=== PATIENT | male | born 1960 | race Caucasian/White ===

== ENCOUNTER 2018-01-06 00:33 | Emergency (ER) | payer OTHER ==
[2018-01-06 00:50] VITALS: BP 132/83; PULSE 116; O2SAT 98
--- NOTE | 2018-01-06 01:05 | ERPHSYRPT ---
- History of Present Illness Time Seen by Provider: 01/06/18 00:51 Source: patient Exam Limitations: no limitations Patient Subjective Stated Complaint: legs swollen Triage Nursing Assessment: Pt c/o of bilateral swelling of his legs, has had to keep them wrapped for the past year to keep from splitting open and weeping, states that legs are more swollen now and has been for the past 4 days but has not contacted his PCP, hx of diabetes and has had 7 toes amputated, pulses normal, doesn't appear to be in any distress Physician History: This is a 57-year-old morbidly obese white male with history of peripheral neuropathy diabetes as well high blood pressure He arrives with complaint that he has chronic leg swelling for over a year. He states that he has been increased over the past 3-4 days. He has no shortness of breath no nausea no chest pain. He feels like his lower legs appear to be more red than usual. He states that he usually sees a physician down in [facility] and that he usually goes to [facility] for treatment of his legs. His states that the patient appears to have dry her plantar surfaces of his feet than usual he has no nausea no vomiting. He has no fevers. Past medical history includes peripheral neuropathy, diabetes type 2, asthma, high blood pressure, patient has had 4 toes amputated in the past. Social history is positive for chewing tobacco. . Timing/Duration: other (bilateral leg swelling for 1 year, worse for the past 4 day) Severity: moderate Modifying Factors: Improves With: nothing Associated Symptoms: other (bilateral leg swelling, bilateral legs erythematos for 4 days), No nausea, No vomiting, No abdominal pain, No shortness of breath, No heartburn, No diaphoresis, No cough, No chills, No chest pain, No fever, No headaches, No loss of appetite, No malaise, No syncope, No seizure, No weakness Allergies/Adverse Reactions: amoxicillin Allergy (Verified 01/06/18 00:52) ceftriaxone [From Rocephin] Allergy (Verified 01/06/18 00:52) Penicillins Allergy (Verified 01/06/18 00:52) sulfamethoxazole [From Bactrim] Allergy (Verified 01/06/18 00:52) trimethoprim [From Bactrim] Allergy (Verified 01/06/18 00:52) Home Medications: Glipizide 5 mg [Glucotrol 5 MG] 10 mg PO BID 01/06/18 [History] Lisinopril 10 mg [Zestril 10 MG] 10 mg PO DAILY 01/06/18 [History] Metformin HCl 850 mg [Glucophage 850 MG] 850 mg PO BID 01/06/18 [History] - Review of Systems Constitutional: No Fever, No Chills Eyes: No Symptoms Ears, Nose, & Throat: No Symptoms Respiratory: No Cough, No Dyspnea Cardiac: Edema, No Chest Pain, No Syncope Abdominal/Gastrointestinal: No Abdominal Pain, No Nausea, No Vomiting, No Diarrhea Genitourinary Symptoms: No Dysuria Musculoskeletal: Other (bilateral leg swelling), No Back Pain, No Neck Pain Skin: Other (bilateral legs dry skin especially feet, legs erythematous) Neurological: No Dizziness, No Focal Weakness, No Sensory Changes Psychological: No Symptoms Endocrine: No Symptoms All Other Systems: Reviewed and Negative - Past Medical History Pertinent Past Medical History: Yes Neurological History: Peripheral Neuropathy Cardiac History: Hypertension Respiratory History: Asthma Endocrine Medical History: Diabetes Type II Other Medical History: 7 toes amputated - Past Surgical History Past Surgical History: Yes Musculoskeletal: Amputation Other Surgical History: 7 toes amputated - Social History Smoking Status: Former smoker Exposure to second hand smoke: Yes Drug Use: none Patient Lives Alone: No - Nursing Vital Signs Nursing Vital Signs: Initial Vital Signs Temperature 97.7 F 01/06/18 00:36 Pulse Rate 116 H 01/06/18 00:36 Blood Pressure 132/83 01/06/18 00:36 O2 Sat by Pulse Oximetry 98 01/06/18 00:36 Pain Scale Pain Intensity 0 - Physical Exam General Appearance: other (morbidly obese white male in no apparent distress alert, oriented 3) Eye Exam: PERRL/EOMI, eyes nml inspection Ears, Nose, Throat Exam: normal ENT inspection, TMs normal, pharynx normal, moist mucous membranes Neck Exam: normal inspection, non-tender, supple, full range of motion Respiratory Exam: normal breath sounds, lungs clear, No respiratory distress Cardiovascular Exam: regular rate/rhythm, normal heart sounds, normal peripheral pulses Gastrointestinal/Abdomen Exam: soft, normal bowel sounds, No tenderness, No mass Back Exam: normal inspection, normal range of motion, No CVA tenderness, No vertebral tenderness Extremity Exam: other (bilateral legs edematous with dry skinmild erythema bilateral mid shins no drainage) Neurologic Exam: alert, oriented x 3, cooperative, atv mechanic II-XII nml as tested, normal mood/affect, nml cerebellar function, nml station & gait, sensation nml, No motor deficits Skin Exam: other (Bilateral legs and feet with dry skin, no drainage, mild erythema mid musa, bilaterally) Lymphatic Exam: No adenopathy SpO2 Interpretation: normal (98%) SpO2: 98 Oxygen Delivery: Room Air - Course Nursing assessment & vital signs reviewed: Yes EKG Interpreted by Me: RATE (88 bpm), Sinus Rhythm, Left [place] Deviation, Other ( EKG: Sinus rhythm, 88 bpm, left axis deviation, no acute ST or T wave changes noted) Ordered Tests: Active Orders 24 hr Category Date Time Status Accucheck STAT Care 01/06/18 00:56 Active EKG-ER Only STAT Care 01/06/18 00:57 Active IV Insertion STAT Care 01/06/18 00:56 Active Wound Care STAT Care 01/06/18 00:56 Active BLOOD CULTURE Stat Lab 01/06/18 02:00 Received CBC W DIFF Stat Lab 01/06/18 01:10 Completed CMP Stat Lab 01/06/18 01:10 Completed D-DIMER QUANTITATION Stat Lab 01/06/18 01:10 Completed Lactic Acid Stat Lab 01/06/18 02:00 Results NT PRO BNP Stat Lab 01/06/18 01:10 Completed Medication Summary Discontinued Medications Generic Name Dose Route Start Last Admin Trade Name Freq PRN Reason Stop Dose Admin Clindamycin HCl 300 mg 01/06/18 02:53 01/06/18 02:56 Cleocin 150 Mg Capsule PO 01/06/18 02:54 300 mg STAT ONE Administration Clindamycin HCl Confirm 01/06/18 02:56 Cleocin 150 Mg Capsule Administered 01/06/18 02:57 Dose 300 mg .ROUTE .STK-MED ONE Lab/Rad Data: Laboratory Result Diagrams 01/06/18 01:10 01/06/18 01:10 Laboratory Results 01/06/18 01/06/18 01/06/18 Range/Units 02:00 01:10 01:10 WBC (4.0-10.5) K/mm3 RBC (4.1-5.6) M/mm3 Hgb (12.5-18.0) gm/dl Hct (42-50) % MCV (78-100) fl MCH (26-32) pg MCHC (32-36) g/dl RDW (11.5-14.0) % Plt Count (150-450) K/mm3 MPV (6-9.5) fl Gran % (36.0-66.0) % Eos # (Auto) (0-0.5) Absolute Lymphs (auto) (1.0-4.6) Absolute Monos (auto) (0.0-1.3) Lymphocytes % (24.0-44.0) % Monocytes % (0.0-12.0) % Eosinophils % (0.00-5.0) % Basophils % (0.0-0.4) % Absolute Granulocytes (1.4-6.9) Basophils # (0-0.4) D-Dimer 13634 H* (215-500) ng/mL Sodium (137-145) mmol/L Potassium (3.5-5.1) mmol/L Chloride (98-107) mmol/L Carbon Dioxide (22-30) mmol/L Anion Gap (5-15) MEQ/L BUN (9-20) mg/dL Creatinine (0.66-1.25) mg/dL Estimated GFR ML/MIN Glucose (74-106) mg/dL Lactic Acid 2.3 H (0.4-2.0) Calcium (8.4-10.2) mg/dL Total Bilirubin (0.2-1.3) mg/dL AST (17-59) U/L ALT (0-50) U/L Alkaline Phosphatase (38-126) U/L NT-Pro-B Natriuret Pep 56.6 (0-900) pg/mL Serum Total Protein (6.3-8.2) g/dL Albumin (3.5-5.0) g/dL 01/06/18 01/06/18 Range/Units 01:10 01:10 WBC 9.5 (4.0-10.5) K/mm3 RBC 4.87 (4.1-5.6) M/mm3 Hgb 15.5 (12.5-18.0) gm/dl Hct 46.1 (42-50) % MCV 94.7 (78-100) fl MCH 31.8 (26-32) pg MCHC 33.6 (32-36) g/dl RDW 13.0 (11.5-14.0) % Plt Count 237 (150-450) K/mm3 MPV 10.4 H (6-9.5) fl Gran % 60.4 (36.0-66.0) % Eos # (Auto) 0.31 (0-0.5) Absolute Lymphs (auto) 2.56 (1.0-4.6) Absolute Monos (auto) 0.81 (0.0-1.3) Lymphocytes % 27.1 (24.0-44.0) % Monocytes % 8.6 (0.0-12.0) % Eosinophils % 3.3 (0.00-5.0) % Basophils % 0.6 (0.0-0.4) % Absolute Granulocytes 5.72 (1.4-6.9) Basophils # 0.06 (0-0.4) D-Dimer (215-500) ng/mL Sodium 141 (137-145) mmol/L Potassium 4.0 (3.5-5.1) mmol/L Chloride 105 (98-107) mmol/L Carbon Dioxide 22 (22-30) mmol/L Anion Gap 18.9 H (5-15) MEQ/L BUN 23 H (9-20) mg/dL Creatinine 1.53 H (0.66-1.25) mg/dL Estimated GFR 49.9 ML/MIN Glucose 102 (74-106) mg/dL Lactic Acid (0.4-2.0) Calcium 9.9 (8.4-10.2) mg/dL Total Bilirubin 0.50 (0.2-1.3) mg/dL AST 19 (17-59) U/L ALT 20 (0-50) U/L Alkaline Phosphatase 80 (38-126) U/L NT-Pro-B Natriuret Pep (0-900) pg/mL Serum Total Protein 8.4 H (6.3-8.2) g/dL Albumin 4.7 (3.5-5.0) g/dL - Progress Progress: improved Progress Note: 01/06/18 01:03 This is a morbidly obese white male with history of diabetes, peripheral neuropathy, asthma, high blood pressure, who has had a history of stasis dermatitis in the past he also has been seeing [facility]. He has a family physician in [facility] he states he moved here. He states he has been having leg swelling for a year he states it is worse over the past 4 days. He states that he has erythema to bilateral lower legs for the past 4 days. He has not had any fevers no nausea no vomiting. On examination patient appears to have chronic bilateral lower extremity edema with dry skin on both plantar surface of his feet as well as his lower legs. He has mild erythema to the anterior bilateral midshin area is not hot. Will go ahead and obtain appropriate labs. 01/06/18 03:02 57-year-old white male with history of peripheral neuropathy, diabetes type 2, asthma, high blood pressure, Who has chronic lower extremity edema complains of leg swelling for over a year. He states that for the past 4 days he feels like his legs are increasingly swollen. He is not complaining of any shortness of breath chest pain abdominal pain nausea vomiting. He has been afebrile. On physical examination patient with bilateral edema of the lower legs this appears to be chronic. He has mild erythema mid musa anteriorly bilaterally. He has dry skin on both lower extremities. Patient had a markedly elevated d-dimer I did try to go ahead and order a venous Doppler bilateral extremities however when the tech showed up the patient refused venous Doppler. I had told the patient I cannot rule out DVT without these he states he does not want this test done. Patient does have some very mild erythema of his bilateral anterior legs. He is afebrile the area is not hot. Will go ahead and give patient clindamycin to cover. Patient is noted to have a lactate which is increased increased at 2.3. Patient does not appear to be septic blood pressure is stable oxygen saturation is 98% respirations are clear patient has good perfusion to his extremities. Will go ahead and place patient on clindamycin 600 mg IV followed by 300 mg orally 3 times a day. Will arrange for a referral to the wound care clinic. . - Departure Time of Disposition: 02:58 Departure Disposition: Home Clinical Impression: Leg swelling, early cellulitis bilateral legs Condition: Fair Critical Care Time: No Referrals: Provider,Unknown [Primary Care Provider] - Instructions: Dependent Edema (DC) Additional Instructions: Return home. Plenty of fluids. Clindamycin as prescribed. Follow-up with your family doctor. Return for acute distress or for severe symptoms. You were noted to have a markedly elevated d-dimer this can be indicative of blood clots.(dvt) You have refused bilateral lower extremity Dopplers. We cannot rule out blood clots in your legs without these. DVTs can be fatal if they moved to the lung . Follow-up with your family doctor. Follow-up with the wound care clinic. You may return at any time. Return for acute distress or for severe symptoms. Prescriptions: Clindamycin HCl 300 mg PO TID #30 capsule
[2018-01-06 01:32] LABS: BASOPHIL % 0.6 % (0.0-0.4); Basophil (Absolute #) 0.06 (0-0.4); Eosinophil % 3.3 % (0.00-5.0); Eosinophil (Absolute #) 0.31 (0-0.5); Granulocyte Absolute (ANC) 5.72 (1.4-6.9); Granulocytes % 60.4 % (36.0-66.0); Hematocrit 46.1 % (42-50); Hemoglobin 15.5 gm/dl (12.5-18.0); Lymphocyte (Absolute #) 2.56 (1.0-4.6); Lymphocytes % 27.1 % (24.0-44.0); Mean Cell Volume 94.7 fl (78-100); Mean Corpuscular Hemoglobin 31.8 pg (26-32); Mean Corpuscular Hgb Concent. 33.6 g/dl (32-36); Mean Platelet Volume 10.4 fl (6-9.5); Monocyte (Absolute #) 0.81 (0.0-1.3); Monocytes % 8.6 % (0.0-12.0); Platelet Count 237 K/mm3 (150-450); Red Blood Count 4.87 M/mm3 (4.1-5.6); White Blood Count 9.5 K/mm3 (4.0-10.5)
[2018-01-06 01:51] LABS: ALBUMIN 4.7 g/dL (3.5-5.0); ANION GAP 18.9 MEQ/L (5-15); BILIRUBIN,TOTAL 0.5 mg/dL (0.2-1.3); Calcium 9.9 mg/dL (8.4-10.2); Creatinine 1 1.53 mg/dL (0.66-1.25); Total Protein 8.4 g/dL (6.3-8.2)
[2018-01-06 02:07] LABS: Lactic Acid 2.3 (0.4-2.0)
[2018-01-06] MEDS ORDERED: CLEOCIN 150 MG CAPSULE PO ONE (02:53)
[2018-01-06] MEDS ORDERED: CLEOCIN 150 MG CAPSULE ONE (02:56)
== END 2018-01-06 03:25 | disposition home or self-care (01) ==
LOC: ED 00:33
DX: L03.116 Cellulitis of left lower limb (principal); L03.115 Cellulitis of right lower limb; R79.1 Abnormal coagulation profile; Z79.899 Other long term (current) drug therapy; E11.9 Type 2 diabetes mellitus without complications; Z79.84 Long term (current) use of oral hypoglycemic drugs; I10 Essential (primary) hypertension
CPT/HCPCS: 36000; 36415; 80053; 82962; 83605; 83880; 85025; 85379; 87040; 93005; 99284; A9270-GY

== ENCOUNTER 2018-01-16 00:10 | Emergency (ER) | payer OTHER ==
[2018-01-16 01:07] VITALS: BP 105/63; PULSE 76; O2SAT 98
--- NOTE | 2018-01-16 01:13 | ERPHSYRPT ---
- History of Present Illness Time Seen by Provider: 01/16/18 00:30 Source: patient Exam Limitations: clinical condition Patient Subjective Stated Complaint: pt states he thinks he has an ingrown nail to his lt thumb. states it started approx 4 days ago and today he has green drainage from it. Triage Nursing Assessment: pt alert and oriented. answers questions approp. pt ambulatory with steady gait noted. respirations nonlbored. open area to lt thumb. no drainage noted at this time. Physician History: PATIENT WITH A HISTORY OF HYPERTENSION, TYPE 2 DIABETES PLACED ON ANTIBIOTIC CLINDAMYCIN 300MG TID SINCE 01/06/2018 FOR A LEG INFECTION BUT HAS BEEN TAKING MEDICATION ONLY DAILY. HE NOW COMPLAINS OF DRAINAGE OVER THUMB NAIL AFTER PULLING HANGNAIL. DENIES REDNESS OVER THUMB. DENIES FEVER. Occurred: just prior to arrival Method of Injury: other (PULLED HANG NAIL) Quality: throbbing Severity of Pain-Max: mild Severity of Pain-Current: mild Extremities Pain Location: thumb: right Modifying Factors: Improves With: nothing Allergies/Adverse Reactions: amoxicillin Allergy (Verified 01/16/18 00:28) ceftriaxone [From Rocephin] Allergy (Verified 01/16/18 00:28) Penicillins Allergy (Verified 01/16/18 00:28) sulfamethoxazole [From Bactrim] Allergy (Verified 01/16/18 00:28) trimethoprim [From Bactrim] Allergy (Verified 01/16/18 00:28) Home Medications: Glipizide 5 mg [Glucotrol 5 MG] 10 mg PO BID 01/06/18 [History] Lisinopril 10 mg [Zestril 10 MG] 10 mg PO DAILY 01/06/18 [History] Metformin HCl 850 mg [Glucophage 850 MG] 850 mg PO BID 01/06/18 [History] Hx Tetanus, Diphtheria Vaccination/Date Given: No (unknown) Hx Influenza Vaccination/Date Given: No Hx Pneumococcal Vaccination/Date Given: No Immunizations Up to Date: No - Review of Systems Musculoskeletal: Joint Swelling - Past Medical History Pertinent Past Medical History: Yes Neurological History: Peripheral Neuropathy Cardiac History: Hypertension Respiratory History: Asthma Endocrine Medical History: Diabetes Type II Other Medical History: 7 toes amputated - Past Surgical History Past Surgical History: Yes Musculoskeletal: Amputation Other Surgical History: 7 toes amputated - Social History Smoking Status: Former smoker Exposure to second hand smoke: Yes Drug Use: none Patient Lives Alone: No - Nursing Vital Signs Nursing Vital Signs: Initial Vital Signs Temperature 97.4 F 01/16/18 00:17 Pulse Rate 79 01/16/18 00:17 Respiratory Rate 18 01/16/18 00:17 Blood Pressure 147/88 01/16/18 00:17 O2 Sat by Pulse Oximetry 99 01/16/18 00:17 Pain Scale Pain Intensity 0 - Physical Exam General Appearance: no apparent distress Hand Exam: nail injury (SWELLING WITH SEROSANGUINOUS DRAINAGE FOR NAIL FOLD RADIAL ASPECT DISTAL PHALANGX RIGHT THUMB), soft tissue tenderness SpO2: 98 Oxygen Delivery: Room Air - Progress Counseled pt/family regarding: diagnosis, need for follow-up - Departure Time of Disposition: :20 Departure Disposition: Home Clinical Impression: RIGHT THUMB EARLY CELLULITIS Condition: Stable Critical Care Time: No Referrals: DOCTOR,NO FAMILY [Primary Care Provider] - Additional Instructions: BEGIN TAKING ANTIBIOTIC CLEOCIN 300MG EVERY 8 HOURS FOR 10 DAYS. CHANGE BANDAID EVERY 6 HOURS OVER THUMB NEEDED. FOLLOWUP WITH YOUR PRIMARY CARE PROVIDER FOR FOLLOWUP IN 5-7 DAYS, Prescriptions: Clindamycin HCl [Cleocin HCl] 300 mg PO TID #21 capsule
== END 2018-01-16 01:24 | disposition home or self-care (01) ==
LOC: ED 00:10
DX: L03.011 Cellulitis of right finger (principal); Z79.899 Other long term (current) drug therapy
CPT/HCPCS: 99283

== ENCOUNTER 2018-03-14 19:15 | Emergency (ER) | payer OTHER ==
--- NOTE | 2018-03-14 19:51 | ERPHSYRPT ---
- History of Present Illness Time Seen by Provider: 03/14/18 19:50 Allergies/Adverse Reactions: ceftriaxone [From Rocephin] Allergy (Mild, Verified 03/14/18 19:57) Rash clindamycin [From Cleocin] Allergy (Mild, Verified 03/14/18 19:57) Rash Penicillins Allergy (Mild, Verified 03/14/18 19:57) Rash sulfamethoxazole [From Bactrim] Allergy (Mild, Verified 03/14/18 19:57) Rash trimethoprim [From Bactrim] Allergy (Mild, Verified 03/14/18 19:57) Rash amoxicillin Allergy (Verified 01/16/18 00:28) Home Medications: Glipizide 5 mg [Glucotrol 5 MG] 10 mg PO BID 01/06/18 [History] Lisinopril 10 mg [Zestril 10 MG] 10 mg PO DAILY 01/06/18 [History] Metformin HCl 850 mg [Glucophage 850 MG] 850 mg PO BID 01/06/18 [History] Hx Tetanus, Diphtheria Vaccination/Date Given: No (unknown) Hx Influenza Vaccination/Date Given: No Hx Pneumococcal Vaccination/Date Given: No - Past Medical History Pertinent Past Medical History: Yes Neurological History: Peripheral Neuropathy Cardiac History: Hypertension Respiratory History: Asthma Endocrine Medical History: Diabetes Type II Other Medical History: 7 toes amputated - Past Surgical History Past Surgical History: Yes Musculoskeletal: Amputation Other Surgical History: 7 toes amputated - Social History Smoking Status: Former smoker Exposure to second hand smoke: Yes Drug Use: none Patient Lives Alone: No - Nursing Vital Signs Nursing Vital Signs: Initial Vital Signs Temperature 97.5 F 03/14/18 19:32 Pulse Rate 76 03/14/18 19:32 Respiratory Rate 16 03/14/18 19:32 Blood Pressure 141/89 03/14/18 19:32 O2 Sat by Pulse Oximetry 99 03/14/18 19:32 Pain Scale Pain Intensity 0 - Course Nursing assessment & vital signs reviewed: Yes EKG Interpreted by Me: RATE (66), NORMAL AXIS, Other (escape rhythm; no acute ischemia and no change from ekg 01/06/18 ) Ordered Tests: Active Orders 24 hr Category Date Time Status Clean Catch Urine Specimen STAT Care 03/14/18 20:10 Active EKG-ER Only STAT Care 03/14/18 20:10 Active IV Insertion STAT Care 03/14/18 20:10 Active Pulse Oximetry (ED) STAT Care 03/14/18 20:10 Active HEAD WITHOUT CONTRAST [CT] Stat Exams 03/14/18 20:11 Taken CBC W DIFF Stat Lab 03/14/18 20:35 Completed CMP Stat Lab 03/14/18 20:35 Completed CULTURE,URINE Stat Lab 03/14/18 22:29 Received TROPONIN Stat Lab 03/14/18 20:30 Received UA W/RFX UR CULTURE Stat Lab 03/14/18 22:29 Completed Medication Summary Generic Name Dose Route Start Last Admin Trade Name Freq PRN Reason Stop Dose Admin Ciprofloxacin 500 mg 03/15/18 23:40 Cipro 500 Mg PO 03/15/18 23:41 ONCE ONE Discontinued Medications Generic Name Dose Route Start Last Admin Trade Name Freq PRN Reason Stop Dose Admin Sodium Chloride 1,000 mls @ 999 mls/hr 03/14/18 20:10 03/14/18 20:43 Sodium Chloride 0.9% 1000 Ml IV 03/14/18 21:10 999 mls/hr .Q1H1M STA Administration Sodium Chloride Confirm 03/14/18 20:39 Sodium Chloride 0.9% 1000 Ml Administered 03/14/18 20:40 Dose 1,000 mls @ ud .ROUTE .STK-MED ONE Lab/Rad Data: Laboratory Result Diagrams 03/14/18 20:35 03/14/18 20:35 Laboratory Results 03/14/18 03/14/18 03/14/18 Range/Units 22:29 20:35 20:35 WBC 5.8 (4.0-10.5) K/mm3 RBC 4.48 (4.1-5.6) M/mm3 Hgb 14.1 (12.5-18.0) gm/dl Hct 42.2 (42-50) % MCV 94.2 (78-100) fl MCH 31.5 (26-32) pg MCHC 33.4 (32-36) g/dl RDW 13.0 (11.5-14.0) % Plt Count 176 (150-450) K/mm3 MPV 9.3 (6-9.5) fl Gran % 61.9 (36.0-66.0) % Eos # (Auto) 0.18 (0-0.5) Absolute Lymphs (auto) 1.46 (1.0-4.6) Absolute Monos (auto) 0.56 (0.0-1.3) Lymphocytes % 25.1 (24.0-44.0) % Monocytes % 9.6 (0.0-12.0) % Eosinophils % 3.1 (0.00-5.0) % Basophils % 0.3 (0.0-0.4) % Absolute Granulocytes 3.60 (1.4-6.9) Basophils # 0.02 (0-0.4) Sodium 140 (137-145) mmol/L Potassium 4.8 (3.5-5.1) mmol/L Chloride 106 (98-107) mmol/L Carbon Dioxide 23 (22-30) mmol/L Anion Gap 15.6 H (5-15) MEQ/L BUN 18 (9-20) mg/dL Creatinine 0.91 (0.66-1.25) mg/dL Estimated GFR > 60.0 ML/MIN Glucose 108 H (74-106) mg/dL Calcium 9.2 (8.4-10.2) mg/dL Total Bilirubin 0.50 (0.2-1.3) mg/dL AST 17 (17-59) U/L ALT 16 (0-50) U/L Alkaline Phosphatase 66 (38-126) U/L Serum Total Protein 7.0 (6.3-8.2) g/dL Albumin 3.9 (3.5-5.0) g/dL Urine Color YELLOW (YELLOW) Urine Appearance CLEAR (CLEAR) Urine pH 6.0 (5-6) Ur Specific [place] 1.013 (1.005-1.025) Urine Protein 30 (Negative) Urine Ketones TRACE (NEGATIVE) Urine Blood SMALL (0-5) Will/ul Urine Nitrite NEGATIVE (NEGATIVE) Urine Bilirubin NEGATIVE (NEGATIVE) Urine Urobilinogen 2 (0-1) mg/dL Ur Leukocyte Esterase SMALL (NEGATIVE) Urine WBC (Auto) 26-50 (0-5) /HPF Urine RBC (Auto) 3-5 (0-2) /HPF U Epithel Cells (Auto) NONE SEEN (FEW) /HPF Urine Bacteria (Auto) MANY (NEGATIVE) /HPF Urine Mucus (Auto) SLIGHT (NEGATIVE) /HPF Urine Culture Reflexed YES (NO) Urine Glucose NEGATIVE (NEGATIVE) mg/dL - Progress Progress: improved, re-examined Progress Note: 03/14/18 23:47 pt states he is feeling much better after fluids. he does not want to wait for troponin to return. he has to leave to get his daughter to work. i discussed with him the risks of a myocardial infarction and . he understands and still wants to sign out ama. Counseled pt/family regarding: lab results, diagnosis, need for follow-up, rad results - Departure Time of Disposition: 23:52 Departure Disposition: AMA Clinical Impression: Weakness, UTI (urinary tract infection) Condition: Stable Critical Care Time: No Referrals: DOCTOR,NO FAMILY [Primary Care Provider] - Additional Instructions: drink plenty of fluids. follow up with primary doctor for further management. return to ED if symptoms worsen
[2018-03-14 20:38] LABS: BASOPHIL % 0.3 % (0.0-0.4); Basophil (Absolute #) 0.02 (0-0.4); Eosinophil % 3.1 % (0.00-5.0); Eosinophil (Absolute #) 0.18 (0-0.5); Granulocytes % 61.9 % (36.0-66.0); Hematocrit 42.2 % (42-50); Hemoglobin 14.1 gm/dl (12.5-18.0); Lymphocyte (Absolute #) 1.46 (1.0-4.6); Lymphocytes % 25.1 % (24.0-44.0); Mean Cell Volume 94.2 fl (78-100); Mean Corpuscular Hemoglobin 31.5 pg (26-32); Mean Corpuscular Hgb Concent. 33.4 g/dl (32-36); Mean Platelet Volume 9.3 fl (6-9.5); Monocyte (Absolute #) 0.56 (0.0-1.3); Monocytes % 9.6 % (0.0-12.0); Platelet Count 176 K/mm3 (150-450); Red Blood Count 4.48 M/mm3 (4.1-5.6); White Blood Count 5.8 K/mm3 (4.0-10.5)
[2018-03-14] MEDS ORDERED: Sodium Chloride 0.9% 1000 ML 1,000 ML ONE (20:39)
[2018-03-14] MEDS: Sodium Chloride 0.9% 1000 ML 1,000 ML IV STA (20:43)
[2018-03-14 20:59] LABS: ALBUMIN 3.9 g/dL (3.5-5.0); ALKALINE PHOSPHATASE 66 U/L (38-126); ANION GAP 15.6 MEQ/L (5-15); BLOOD UREA NITROGEN 18 mg/dL (9-20); CHLORIDE 106 mmol/L (98-107); Calcium 9.2 mg/dL (8.4-10.2); Carbon Dioxide 23 mmol/L (22-30); Creatinine 1 0.91 mg/dL (0.66-1.25); Glucose 108 mg/dL (74-106); Potassium 4.8 mmol/L (3.5-5.1); SGOT/AST 17 U/L (17-59); SGPT/ALT 16 U/L (0-50); SODIUM 140 mmol/L (137-145)
[2018-03-14 22:41] LABS: Appearance CLEAR (CLEAR); Bilirubin NEGATIVE (NEGATIVE); Blood SMALL Ery/ul (0-5); Glucose NEGATIVE (NEGATIVE); Ketones TRACE (NEGATIVE); Leukocyte Esterase SMALL (NEGATIVE); Nitrite NEGATIVE (NEGATIVE); Protein,Urine Dip 30 (Negative); Specific Gravity 1.013 (1.005-1.025); Urobilinogen 2 mg/dL (0-1)
[2018-03-14 23:47] VITALS: BP 125/80; PULSE 76; O2SAT 99
[2018-03-14] MEDS ORDERED: Cipro 500 MG ONE (23:47)
[2018-03-14] MEDS: Cipro 500 MG PO ONE (23:58)
--- NOTE | 2018-03-15 09:03 | XRAY ---
Indication: Dizziness and loss of balance. No known injury. Multiple contiguous axial images obtained through the head without contrast. Comparison: None Age appropriate global atrophy. Minimal periventricular degenerative micro-ischemia. No acute intracranial hemorrhage, abnormal extra-axial fluid collection, or mass effect. Fourth ventricle is midline. Bony calvarium intact. Visualized paranasal sinuses and mastoid air cells are clear. Impression: 1. Normal aging brain including atrophy and degenerative micro-ischemia. 2. No acute intracranial abnormalities.. Comment: Preliminary interpretation was made by [facility]. No discrepancy. CT DI 94.03
== END 2018-03-15 00:09 | disposition home or self-care (01) ==
LOC: ED 19:15
DX: R53.1 Weakness (principal); R42 Dizziness and giddiness; N39.0 Urinary tract infection, site not specified; E11.9 Type 2 diabetes mellitus without complications; I10 Essential (primary) hypertension; J45.909 Unspecified asthma, uncomplicated; Z89.429 Acquired absence of other toe(s), unspecified side; Z79.4 Long term (current) use of insulin; G62.9 Polyneuropathy, unspecified; E66.01 Morbid (severe) obesity due to excess calories
CPT/HCPCS: 36415; 70450; 80053; 81001; 82962; 84484; 85025; 87077; 87086; 87186; 93005; 96360; 99284; A9270-GY

== ENCOUNTER 2018-10-25 21:52 | Emergency (ER) | payer OTHER ==
--- NOTE | 2018-10-25 22:16 | ERPHSYRPT ---
- History of Present Illness Time Seen by Provider: 10/25/18 22:16 Source: patient Exam Limitations: no limitations Physician History: 57 y/o white male presents with right knee pain after falling down yesterday. Method of Injury: fell Occurred: other (yesterday am) Quality: aching Severity of Pain-Max: mild Severity of Pain-Current: mild Lower Extremities Pain: knee: right Modifying Factors: Improves With: movement Associated Symptoms: other (hurts to bear weight) Allergies/Adverse Reactions: ceftriaxone [From Rocephin] Allergy (Mild, Verified 10/25/18 22:10) Rash clindamycin [From Cleocin] Allergy (Mild, Verified 10/25/18 22:10) Rash Penicillins Allergy (Mild, Verified 10/25/18 22:10) Rash sulfamethoxazole [From Bactrim] Allergy (Mild, Verified 10/25/18 22:10) Rash trimethoprim [From Bactrim] Allergy (Mild, Verified 10/25/18 22:10) Rash amoxicillin Allergy (Verified 10/25/18 22:10) Home Medications: Glipizide 5 mg [Glucotrol 5 MG] 10 mg PO BID 01/06/18 [History] Lisinopril 10 mg [Zestril 10 MG] 10 mg PO DAILY 01/06/18 [History] Metformin HCl 850 mg [Glucophage 850 MG] 850 mg PO BID 01/06/18 [History] Hx Tetanus, Diphtheria Vaccination/Date Given: No (unknown) Hx Influenza Vaccination/Date Given: No Hx Pneumococcal Vaccination/Date Given: No - Review of Systems Constitutional: No Symptoms Eyes: No Symptoms Ears, Nose, & Throat: No Symptoms Respiratory: No Symptoms Cardiac: No Symptoms Abdominal/Gastrointestinal: No Symptoms Genitourinary Symptoms: No Symptoms Musculoskeletal: Fall, Injury (right knee) Skin: No Symptoms Neurological: No Symptoms Psychological: No Symptoms Endocrine: No Symptoms Hematologic/Lymphatic: No Symptoms Immunological/Allergic: No Symptoms All Other Systems: Reviewed and Negative - Past Medical History Pertinent Past Medical History: Yes Neurological History: Peripheral Neuropathy ENT History: No Pertinent History Cardiac History: Hypertension Respiratory History: Asthma Endocrine Medical History: Diabetes Type II Musculoskeletal History: No Pertinent History GI Medical History: No Pertinent History History: No Pertinent History Psycho-Social History: No Pertinent History Male Reproductive Disorders: No Pertinent History Other Medical History: 7 toes amputated - Past Surgical History Past Surgical History: Yes Neuro Surgical History: No Pertinent History Cardiac: No Pertinent History Respiratory: No Pertinent History Gastrointestinal: No Pertinent History Genitourinary: No Pertinent History Musculoskeletal: Amputation Other Surgical History: 7 toes amputated - Social History Smoking Status: Former smoker Exposure to second hand smoke: Yes Drug Use: none Patient Lives Alone: No - Nursing Vital Signs Nursing Vital Signs: Initial Vital Signs Temperature 98.0 F 10/25/18 22:11 Pulse Rate 94 H 10/25/18 22:11 Respiratory Rate 18 10/25/18 22:11 Blood Pressure 126/73 10/25/18 22:11 O2 Sat by Pulse Oximetry 95 10/25/18 22:11 Pain Scale Pain Intensity 8 - Physical Exam General Appearance: no apparent distress, alert, anxiety Eyes, Ears, Nose, Throat Exam: normal ENT inspection, moist mucous membranes Neck Exam: normal inspection, non-tender, supple, full range of motion Cardiovascular/Respiratory Exam: chest non-tender Gastrointestinal/Abdominal Exam: non-tender Back Exam: normal inspection, normal range of motion, No CVA tenderness, No vertebral tenderness Hips Exam: bilateral: non-tender, normal inspection, normal range of motion, no evidence of injury Legs Exam: bilateral leg: non-tender, normal inspection, normal range of motion , no evidence of injury Knees Exam: right knee: bone tenderness, soft tissue tenderness, bilateral knee : normal inspection, normal range of motion, no evidence of injury Ankle Exam: bilateral ankle: non-tender, normal inspection, normal range of motion, no evidence of injury Neuro/Tendon Exam: normal sensation, normal motor functions, normal tendon functions Mental Status Exam: alert, oriented x 3, cooperative Skin Exam: normal color, warm, dry SpO2 Interpretation: normal O2 Delivery: Room Air Ordered Tests: Active Orders 24 hr Category Date Time Status KNEE (3 VIEWS) Stat Exams 10/26/18 00:01 Ordered - Progress Progress: unchanged Progress Note: 10/26/18 00:28 right knee xray-no acute fx or dislocation Counseled pt/family regarding: diagnosis, need for follow-up, rad results - Departure Departure Disposition: Home Clinical Impression: Right knee pain Condition: Stable Critical Care Time: No Referrals: DOCTOR,NO FAMILY [Primary Care Provider] - Additional Instructions: ice pack 3 times daily for 2 days. follow up with primary doctor for further management
[2018-10-26] MEDS ORDERED: PERCOCET TABLET 5/325MG PO STA (00:30)
[2018-10-26] MEDS ORDERED: PERCOCET TABLET 5/325MG ONE (00:35)
[2018-10-26 00:47] VITALS: BP 114/67; PULSE 77; O2SAT 98
--- NOTE | 2018-10-26 09:09 | XRAY ---
Indication: Pain following fall. Comparison: None 3 views of the right knee demonstrates mild/moderate tricompartmental degenerative changes greatest medial compartment and tiny posterior fabella. Scattered benign-appearing soft tissue calcifications including vascular. No other bony, articular, or soft tissue abnormalities.
== END 2018-10-26 00:52 | disposition home or self-care (01) ==
LOC: ED 21:52
DX: M25.561 Pain in right knee (principal); W19.XXXA Unspecified fall, initial encounter; Z79.899 Other long term (current) drug therapy
CPT/HCPCS: 73562; 99283; A9270-GY

== ENCOUNTER 2019-04-12 16:13 | Emergency (ER) | payer OTHER, MEDICAID ==
--- NOTE | 2019-04-12 16:43 | ERPHSYRPT ---
- History of Present Illness Time Seen by Provider: 04/12/19 16:43 Source: patient, family Exam Limitations: no limitations Physician History: 58 y/o diabetic white male presents with open diabetic ulcer plantar surface of left foot. pt ordinarily has dressing changes of bilat feet weekly. he did not have supplies so no dressing changes in 2 weeks. this afternoon new ulcer present. pt has had multiple toe amputations bilat feet and has no toes remaining on left foot. pt has no sensation. pt denies fever and has been ambulating on left foot. pt sees dr. shipman, podiatry and occasionally [facility] for acute issues. 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 wants to start on antibiotics today. pt, when reviewed antibiotics, specifically states he can take doxycycline and silvadene cream. he told rn same issues Method of Injury: unknown Occurred: this afternoon Quality: other (no pain) Severity of Pain-Max: none Severity of Pain-Current: none Lower Extremities Pain: other: left (diabetic ulcer plantar surface left foot) Modifying Factors: Improves With: nothing Associated Symptoms: none Allergies/Adverse Reactions: ceftriaxone [From Rocephin] Allergy (Mild, Verified 10/25/18 22:10) Rash clindamycin [From Cleocin] Allergy (Mild, Verified 10/25/18 22:10) Rash Penicillins Allergy (Mild, Verified 10/25/18 22:10) Rash sulfamethoxazole [From Bactrim] Allergy (Mild, Verified 10/25/18 22:10) Rash trimethoprim [From Bactrim] Allergy (Mild, Verified 10/25/18 22:10) Rash amoxicillin Allergy (Verified 10/25/18 22:10) Home Medications: Glipizide 5 mg [Glucotrol 5 MG] 10 mg PO BID 01/06/18 [History] Lisinopril 10 mg [Zestril 10 MG] 10 mg PO DAILY 01/06/18 [History] Metformin HCl 850 mg [Glucophage 850 MG] 850 mg PO BID 01/06/18 [History] Hx Tetanus, Diphtheria Vaccination/Date Given: No (unknown) Hx Influenza Vaccination/Date Given: No Hx Pneumococcal Vaccination/Date Given: No - Review of Systems Constitutional: No Symptoms Eyes: No Symptoms Ears, Nose, & Throat: No Symptoms Respiratory: No Symptoms Cardiac: No Symptoms Abdominal/Gastrointestinal: No Symptoms Genitourinary Symptoms: No Symptoms Musculoskeletal: No Symptoms Skin: Other (left foot diabetic ulcer) Neurological: No Symptoms Psychological: No Symptoms Endocrine: No Symptoms Hematologic/Lymphatic: No Symptoms Immunological/Allergic: No Symptoms All Other Systems: Reviewed and Negative - Past Medical History Pertinent Past Medical History: Yes Neurological History: Peripheral Neuropathy ENT History: No Pertinent History Cardiac History: Hypertension Respiratory History: Asthma Endocrine Medical History: Diabetes Type II Musculoskeletal History: No Pertinent History GI Medical History: No Pertinent History History: No Pertinent History Psycho-Social History: No Pertinent History Male Reproductive Disorders: No Pertinent History Other Medical History: 7 toes amputated - Past Surgical History Past Surgical History: Yes Neuro Surgical History: No Pertinent History Cardiac: No Pertinent History Respiratory: No Pertinent History Gastrointestinal: No Pertinent History Genitourinary: No Pertinent History Musculoskeletal: Amputation Male Surgical History: No Pertinent History Other Surgical History: 7 toes amputated - Social History Smoking Status: Former smoker Exposure to second hand smoke: Yes Drug Use: none Patient Lives Alone: No - Nursing Vital Signs Nursing Vital Signs: Initial Vital Signs Temperature 98.4 F 04/12/19 16:48 Pulse Rate 88 04/12/19 16:48 Respiratory Rate 16 04/12/19 16:48 Blood Pressure 124/82 04/12/19 16:48 O2 Sat by Pulse Oximetry 100 04/12/19 16:48 Pain Scale Pain Intensity 0 - Physical Exam General Appearance: no apparent distress, alert Eyes, Ears, Nose, Throat Exam: normal ENT inspection, moist mucous membranes Neck Exam: normal inspection, non-tender, supple, full range of motion Cardiovascular/Respiratory Exam: chest non-tender Gastrointestinal/Abdominal Exam: non-tender Back Exam: normal inspection, normal range of motion, No CVA tenderness, No vertebral tenderness Hips Exam: bilateral: non-tender, normal inspection, normal range of motion, no evidence of injury Legs Exam: bilateral leg: non-tender, normal inspection, normal range of motion , no evidence of injury Knees Exam: bilateral knee: non-tender, normal inspection, normal range of motion, no evidence of injury Ankle Exam: bilateral ankle: non-tender, normal inspection, normal range of motion, no evidence of injury Foot Exam: left foot: non-tender, normal range of motion, no evidence of injury , other (plantar surface open ulcer 2.5cm diameter. foul odor. no drainage. eschar present. no proximal streaking. ) Neuro/Tendon Exam: normal motor functions, no evidence tendon injury, sensory deficit (chronic) Mental Status Exam: alert, oriented x 3, cooperative Skin Exam: other (see above diabetic foot ulcer) SpO2 Interpretation: normal O2 Delivery: Room Air - Course Nursing assessment & vital signs reviewed: Yes Ordered Tests: Active Orders 24 hr Category Date Time Status Kemar Bandage Application -[facility] STAT Care 04/12/19 17:37 Active Wound Care STAT Care 04/12/19 17:36 Active CULTURE,WOUND Stat Lab 04/12/19 17:36 Ordered Medication Summary Discontinued Medications Generic Name Dose Route Start Last Admin Trade Name Abdias PRN Reason Stop Dose Admin Doxycycline Hyclate 100 mg 04/12/19 17:38 04/12/19 17:42 Vibramycin 100 Mg PO 04/12/19 17:39 100 mg STAT ONE Administration Doxycycline Hyclate Confirm 04/12/19 17:40 Vibramycin 100 Mg Administered 04/12/19 17:41 Dose 100 mg .ROUTE .STK-MED ONE Silver Sulfadiazine 50 gm 04/12/19 17:37 04/12/19 17:42 Silvadene 50 Gm TP 04/12/19 17:38 50 gm STAT ONE Administration Silver Sulfadiazine Confirm 04/12/19 17:40 Silvadene 50 Gm Administered 04/12/19 17:41 Dose 50 gm TP .STK-MED ONE - Progress Progress: improved Counseled pt/family regarding: diagnosis, need for follow-up - Departure Departure Disposition: Home Clinical Impression: Diabetic foot ulcer Condition: Stable Critical Care Time: No Referrals: DOCTOR,NO FAMILY [Primary Care Provider] - Additional Instructions: 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 take medications as prescribed. Prescriptions: Doxycycline Hyclate 100 mg [Vibramycin 100 MG] 100 mg PO BID #14 tab
[2019-04-12] MEDS ORDERED: SILVADENE 50 GM TP ONE ×2 (17:37→17:40)
[2019-04-12] MEDS ORDERED: Vibramycin 100 MG PO ONE (17:38)
[2019-04-12] MEDS ORDERED: Vibramycin 100 MG ONE (17:40)
[2019-04-12 17:52] VITALS: BP 110/74; PULSE 80; O2SAT 98
== END 2019-04-12 18:06 | disposition home or self-care (01) ==
LOC: ED 16:13
DX: E11.621 Type 2 diabetes mellitus with foot ulcer (principal); Z79.899 Other long term (current) drug therapy
CPT/HCPCS: 87070; 87077; 87186; 99283; A9270-GY

== ENCOUNTER 2019-05-19 21:12 | Emergency (ER) | payer MEDICAID, OTHER ==
[2019-05-19] MEDS ORDERED: Levofloxacin 250MG Tablet PO ONE (22:43)
[2019-05-19] MEDS ORDERED: Levofloxacin 250MG Tablet ONE (22:45)
[2019-05-19 23:11] LABS: Absolute Neutrophil Ct (ANC) 6.58 (1.4-6.9); BASOPHIL % 0.5 % (0.0-0.4); Basophil (Absolute #) 0.05 (0-0.4); Eosinophil % 2.1 % (0.00-5.0); Eosinophil (Absolute #) 0.21 (0-0.5); Hematocrit 33.4 % (42-50); Hemoglobin 10.6 gm/dl (12.5-18.0); Lymphocyte (Absolute #) 1.97 (1.0-4.6); Mean Cell Volume 94.4 fl (78-100); Mean Corpuscular Hemoglobin 29.9 pg (26-32); Mean Corpuscular Hgb Concent. 31.7 g/dl (32-36); Mean Platelet Volume 8.7 fl (6-9.5); Monocyte (Absolute #) 1.03 (0.0-1.3); Monocytes % 10.5 % (0.0-12.0); Neutrophil % 66.9 % (36.0-66.0); Platelet Count 319 K/mm3 (150-450); Red Blood Count 3.54 M/mm3 (4.1-5.6); Red Cell Distribution Width 13.2 % (11.5-14.0); White Blood Count 9.8 K/mm3 (4.0-10.5)
[2019-05-19 23:20] LABS: ANION GAP 12.2 MEQ/L (5-15); BLOOD UREA NITROGEN 27 mg/dL (9-20); CHLORIDE 106 mmol/L (98-107); Calcium 9.4 mg/dL (8.4-10.2); Carbon Dioxide 22 mmol/L (22-30); Creatinine 1 1.14 mg/dL (0.66-1.25); Glucose 182 mg/dL (74-106); Potassium 4.2 mmol/L (3.5-5.1); SODIUM 137 mmol/L (137-145)
--- NOTE | 2019-05-20 01:06 | ERPHSYRPT ---
- History of Present Illness Time Seen by Provider: 05/19/19 21:35 Source: patient Exam Limitations: no limitations Patient Subjective Stated Complaint: pt c/o odor and drainage to bottom of lt foot wound. Pt had surgery on the foot 2 weeks ago in [facility]. Triage Nursing Assessment: pt has open area to bottom of lt foot in the shape of a "o", 3.6 cm L x 2.9 cm W x 2.9 cm D tunnels at 10:00. Pt had surgery 2 weeks ago at [facility] by Dr. Allen. Area is draining large amt of yellow drainage with foul smell. Pt's friend states, "the drainage has been green at home too". Pt has no sensation of pain to foot due to Peripheral neuropathy. Physician History: POS: PVDZ SECONDARYU TO DIABETIS S/P DEBRIDMENT OF FOOT ULCERATION APPROX 2 WEEKS AGO D/C TO HOME-- HOME HEALTH NURSES REPORTEDLY NEVER SHOWED UP TO DO WOUND CARE . C/C LT: FOOT ULCERATION WITH SECONDARY INFECTION /PVDZ Method of Injury: unknown Occurred: other (WEEKS AGO S/P DEBRIDMENT 2 WEEKS AGO ) Quality: other (CHRONIC FOOT ULCERATION WITH DRAINAGE ) Severity of Pain-Max: mild Severity of Pain-Current: mild Lower Extremities Pain: foot: left Modifying Factors: Improves With: movement, other (WEIGHT BEARING) Associated Symptoms: none Allergies/Adverse Reactions: ceftriaxone [From Rocephin] Allergy (Mild, Verified 10/25/18 22:10) Rash clindamycin [From Cleocin] Allergy (Mild, Verified 10/25/18 22:10) Rash Penicillins Allergy (Mild, Verified 10/25/18 22:10) Rash sulfamethoxazole [From Bactrim] Allergy (Mild, Verified 10/25/18 22:10) Rash trimethoprim [From Bactrim] Allergy (Mild, Verified 10/25/18 22:10) Rash amoxicillin Allergy (Verified 10/25/18 22:10) Home Medications: Glipizide 5 mg [Glucotrol 5 MG] 10 mg PO BID 01/06/18 [History] Lisinopril 10 mg [Zestril 10 MG] 10 mg PO DAILY 01/06/18 [History] Metformin HCl 850 mg [Glucophage 850 MG] 850 mg PO BID 01/06/18 [History] Amoxicillin/Potassium Clav [Amox-Clav 875-125 mg Tablet] 1 tab PO BID 05/19/19 [ History] Hx Tetanus, Diphtheria Vaccination/Date Given: Yes Hx Influenza Vaccination/Date Given: No Hx Pneumococcal Vaccination/Date Given: No Immunizations Up to Date: Yes - Review of Systems Constitutional: Fatigue, No Fever, No Chills Eyes: No Symptoms Ears, Nose, & Throat: Nose Congestion Respiratory: Cough Cardiac: No Symptoms, Edema (CHRONIC LOWER EXTREMITY EDEMA ), No Chest Pain Abdominal/Gastrointestinal: No Symptoms, No Abdominal Pain, No Nausea, No Vomiting Genitourinary Symptoms: No Symptoms Musculoskeletal: Arthralgias, Myalgias Skin: Decubiti (FOOOT ULCER LT FOOT PLANTAR SURFACE --BALL OF THE FOOT), Other Neurological: Sensory Changes, Other (POS: DIABETIC NEUROPATHY ) Psychological: No Symptoms Endocrine: Polyuria, Polydipsia Hematologic/Lymphatic: No Symptoms Immunological/Allergic: No Symptoms All Other Systems: Reviewed and Negative - Past Medical History Pertinent Past Medical History: Yes Neurological History: Peripheral Neuropathy ENT History: No Pertinent History Cardiac History: Hypertension Respiratory History: Asthma Endocrine Medical History: Diabetes Type II Musculoskeletal History: Other GI Medical History: No Pertinent History History: No Pertinent History Psycho-Social History: No Pertinent History Male Reproductive Disorders: No Pertinent History Other Medical History: 7 toes amputated. osteomyelitis - Past Surgical History Past Surgical History: Yes Neuro Surgical History: No Pertinent History Cardiac: No Pertinent History Respiratory: No Pertinent History Gastrointestinal: No Pertinent History Genitourinary: No Pertinent History Musculoskeletal: Amputation Male Surgical History: No Pertinent History Other Surgical History: 7 toes amputated/bone removed from bottom of left foot. chest port iv - Social History Smoking Status: Former smoker Exposure to second hand smoke: Yes Drug Use: none Patient Lives Alone: No - Nursing Vital Signs Nursing Vital Signs: Initial Vital Signs Temperature 97.6 F 05/19/19 21:25 Pulse Rate 90 05/19/19 21:25 Respiratory Rate 20 05/19/19 21:25 Blood Pressure 89/74 05/19/19 21:25 O2 Sat by Pulse Oximetry 100 05/19/19 21:25 Pain Scale Pain Intensity 0 - Physical Exam General Appearance: mild distress Eyes, Ears, Nose, Throat Exam: TMs normal, pharynx normal, moist mucous membranes Neck Exam: non-tender, other (POS: DJD WITH DECREASED ROM), No meningismus Cardiovascular/Respiratory Exam: chest non-tender, normal breath sounds, regular rate/rhythm, heart sounds normal, no ecchymosis, no JVD, no respiratory distress, No rib tenderness, No JVD, No decreased breath sounds Gastrointestinal/Abdominal Exam: non-tender, soft, no organomegaly, no hernia, No guarding, No tenderness, No hepatomegaly Back Exam: other (POS: DJD WITHNDECREASED ROM--NT ) Hips Exam: bilateral: non-tender, normal inspection, normal range of motion, no evidence of injury Legs Exam: bilateral leg: non-tender Knees Exam: bilateral knee: non-tender (POD: DJD WITH DECREASED ROM/STIFFNESS ) Ankle Exam: bilateral ankle: non-tender (POS: DJD WITH DECREASED ROM) Foot Exam: left foot: swelling (POS: 2X X3 CM FOOT ULCERATION WITH DRAINAGE/ ODOR IRRIGATED WITH HIBICLENS/NS BACTROBAN OINTMENT TELFA/CLING/ANUM WRAP CULTURE WAS TAKEN AND SENT TO THE LAB), bilateral foot: non-tender Neuro/Tendon Exam: normal motor functions, normal tendon functions, No normal sensation (POS: MOR-SEVER DIABETIC NEUROPATHY BILATERAL FEET LOWER EXTREMIOTIES ) Skin Exam: decubitus (FOOT ULCER LT ), other (CHRONIC LOWER EXTREMITY VEINOUS STASIS) SpO2: 99 - Course Nursing assessment & vital signs reviewed: Yes Ordered Tests: Active Orders 24 hr Category Date Time Status BMP Stat Lab 05/19/19 23:08 Completed CBC W DIFF Stat Lab 05/19/19 23:08 Completed CULTURE,WOUND Stat Lab 05/19/19 22:48 Received Medication Summary Discontinued Medications Generic Name Dose Route Start Last Admin Trade Name Abdias PRN Reason Stop Dose Admin Levofloxacin 750 mg 05/19/19 22:43 05/19/19 22:49 Levofloxacin 250mg Tablet PO 05/19/19 22:44 750 mg STAT ONE Administration Levofloxacin Confirm 05/19/19 22:45 Levofloxacin 250mg Tablet Administered 05/19/19 22:46 Dose 750 mg .ROUTE .STK-MED ONE Lab/Rad Data: Laboratory Result Diagrams 05/19/19 23:08 05/19/19 23:08 Laboratory Results 05/19/19 05/19/19 05/19/19 Range/Units 23:08 23:08 23:08 WBC 9.8 (4.0-10.5) K/mm3 RBC 3.54 L (4.1-5.6) M/mm3 Hgb 10.6 L (12.5-18.0) gm/dl Hct 33.4 L (42-50) % MCV 94.4 (78-100) fl MCH 29.9 (26-32) pg MCHC 31.7 L (32-36) g/dl RDW 13.2 (11.5-14.0) % Plt Count 319 (150-450) K/mm3 MPV 8.7 (6-9.5) fl Gran % 66.9 H (36.0-66.0) % Eos # (Auto) 0.21 (0-0.5) Absolute Lymphs (auto) 1.97 (1.0-4.6) Absolute Monos (auto) 1.03 (0.0-1.3) Lymphocytes % 20.0 L (24.0-44.0) % Monocytes % 10.5 (0.0-12.0) % Eosinophils % 2.1 (0.00-5.0) % Basophils % 0.5 (0.0-0.4) % Absolute Granulocytes 6.58 (1.4-6.9) Basophils # 0.05 (0-0.4) Sodium 137 (137-145) mmol/L Potassium 4.2 (3.5-5.1) mmol/L Chloride 106 (98-107) mmol/L Carbon Dioxide 22 (22-30) mmol/L Anion Gap 12.2 (5-15) MEQ/L BUN 27 H (9-20) mg/dL Creatinine 1.14 (0.66-1.25) mg/dL Estimated GFR > 60.0 ML/MIN Glucose 182 H (74-106) mg/dL Hemoglobin A1c 6.60 H (4.5-6.0) % Calcium 9.4 (8.4-10.2) mg/dL - Progress Progress: improved Progress Note: 05/20/19 01:26 DISCUSSED LABS WITH PATIENT AND - Departure Departure Disposition: Home Clinical Impression: Foot ulcer due to secondary DM, Leg swelling Condition: Stable Critical Care Time: No Referrals: DOCTOR,NO FAMILY [Primary Care Provider] - Additional Instructions: FOLLOW UP WITH WOUND CARE DOCTOR NEXT WEEK CALL FOR APPT TAKE MEDICATIONS DISCUSSED WOUND CARE DISCUSSED RETURN TO ER NEEDED Prescriptions: Levofloxacin [Levaquin 500 MG Tablet] 500 mg PO DAILY #7 tablet Mupirocin [Bactroban OINTMENT] 1 applic TP TID 5 Days #15 gm
[2019-05-20] MEDS ORDERED: Levofloxacin 250MG Tablet PO ONE (01:09)
[2019-05-20] MEDS ORDERED: BACIGUENT PACKET ONE (01:10)
[2019-05-20] MEDS ORDERED: Bactroban OINTMENT TP ONE (01:12)
[2019-05-20 01:56] VITALS: BP 108/74; PULSE 74; O2SAT 98
== END 2019-05-20 01:50 | disposition home or self-care (01) ==
LOC: ED 21:12
DX: E11.621 Type 2 diabetes mellitus with foot ulcer (principal); M79.89 Other specified soft tissue disorders; Z79.899 Other long term (current) drug therapy; Z79.84 Long term (current) use of oral hypoglycemic drugs; I10 Essential (primary) hypertension
CPT/HCPCS: 36415; 80048; 83036; 85025; 87070; 87077; 87186; 99283; A9270-GY